=== PATIENT | female | born 1930 | race Caucasian/White ===

== ENCOUNTER 2018-06-20 17:35 | Observation (INO) ==
[2018-06-20] MEDS ORDERED: Sod Chloride 0.9% Inj 1,000 ML IV.CONT SCH (18:45)
--- NOTE | 2018-06-20 19:05 | ED ---
HPI General Chief Complaint: Neuro Symptoms/Deficit Stated Complaint: Poss AMS Time Seen by Provider: 06/20/18 18:32 Source: patient Mode of arrival: EMS Limitations: no limitations History of Present Illness HPI Narrative: 87 years old female complains of heaviness of bilateral forearm especially left arm. Patient states that the symptoms started several hours prior to arrival. Patient denies any headache. Patient denies any visual change. Patient denies any chest pain or shortness of breath. Patient denies abdominal pain. Patient any focal weakness or numbness of the extremity except bilateral forearm heaviness. Patient states that since the heaviness started several hours ago is better now. Patient denies history of TIA CVA. Patient has history of hypertension and hyperlipidemia. Patient is a non-smoker. Patient is not on any anticoagulant. Onset (ago): hour(s) Timing confirmed by: family member Location: Reports left arm and right arm History of same: No Severity: mild Quality: Reports weak Relieving factors: none Exacerbating factors: none Context: Reports gradual onset On Anticoagulants: No Associated symptoms: Reports denies other symptoms Treatments Prior to Arrival: Reports none Related Data Home Medications Medication Instructions Recorded Confirmed clopidogrel 75 mg PO HS 06/20/18 06/20/18 Allergies Allergy/AdvReac Type Severity Reaction Status Date / Time ciprofloxacin Allergy Severe PAINFUL Verified 02/16/18 10:40 JOINTS"COULDN'T TALK" lansoprazole Allergy Severe Nausea Verified 02/16/18 10:40 ranitidine Allergy Severe Nausea Verified 02/16/18 10:40 Sulfa (Sulfonamide Allergy Severe GASTRIC Verified 02/16/18 10:40 Antibiotics) UPSET Review of Systems ROS: all other systems reviewed are negative [facility] Medical History Medical History Foot drop, left (Acute) TIA (transient ischemic attack) (Acute) Arthritis (Acute) High cholesterol (Acute) Hypertension (Acute) Surgical History Surgical History History of hip replacement (Acute) Hx of appendectomy (Acute) Hx of cholecystectomy (Acute) Social History Social History Substance History: No History of Abuse Second Hand Smoke Exposure: No Smoking Status: Former smoker Tobacco Type: Cigarettes How Often Do You Have a Drink Containing Alcohol: Monthly or less Recent Travel in [facility] within the Last 8 Weeks: Yes Recent Out of Country Travel within the Last 8 Weeks: No Immunization History Tetanus Immunization: Unsure Exam Narrative Exam Narrative: GENERAL: Well-nourished, well-developed patient. SKIN: Focused skin assessment warm/dry. HEAD: Normocephalic. EYES: No scleral icterus. No injection or drainage. NECK: Supple, trachea midline. No JVD or lymphadenopathy. CARDIOVASCULAR: Regular rate and rhythm without murmurs, gallops, or rubs. RESPIRATORY: Breath sounds equal bilaterally. No accessory muscle use. GASTROINTESTINAL: Abdomen soft, non-tender, nondistended. MUSCULOSKELETAL: No cyanosis, or edema. BACK: Nontender without obvious deformity. No CVA tenderness. Neurologic exam: Patient is awake alert oriented x3. Patient moves all extremity well. No obvious focal neurological deficit. Course Initial Documented Vital Signs Temperature 97.8 F 06/20/18 17:43 Pulse Rate 77 06/20/18 17:43 Respiratory Rate 20 06/20/18 17:43 Blood Pressure 177/80 H 06/20/18 17:43 Pulse Oximetry 98 06/20/18 17:43 Last Documented Vital Signs Temperature 98.7 F 06/21/18 07:59 Pulse Rate 61 06/21/18 07:59 Respiratory Rate 16 06/21/18 07:59 Blood Pressure 155/80 H 06/21/18 07:59 Pulse Oximetry 98 06/21/18 07:59 Sign Out Sign Out Data: Patient Sign Out occurred on 06/20/18 at 19:37. Patient's care was discussed, and care was transferred from Andrea De Oliveira to Devin Patricio. Sign Out Comment: Patient with complaints of heaviness bilateral forearm started this afternoon. Workup in process. Patient was signed out to physician incoming this evening. Last updated by Andrea De Oliveira MD at 06/20/18 19:07 Post-Handoff Eval: Patient is signed out to me at 730 to follow-up MRI/MRA of the brain she had focal leg weakness bilateral arms left greater than right patient has MRI MRA head neck negative for any findings. Patient has a UTI with 69 white blood cells her son who is an anesthesiologist from [place] reports that she is had more difficulty speaking and confusion over the last few weeks. We will admit her apparently there also was a episode of near syncope prior to her feeling the weirdness in her arms today admit to telemetry near syncope and treat UTI with altered mental status as well Medical Decision Making MDM Narrative Medical decision making narrative: 87 years old female with heaviness sensation of both arm forearm especially left arm this afternoon. MRA MRI negative no vascular findings no CVA no ischemia... UTI + ceftriaxone admit tele Medical Screen Exam Complete: Yes Emergency Medical Condition: Yes Differential Diagnosis Differential Diagnosis: Differential diagnosis including muscular spasm, neuralgia, neuropathy, TIA, CVA. Lab Data Result diagrams: 06/21/18 03:10 06/21/18 03:10 Lab Results 06/20/18 06/20/18 06/20/18 Range/Units 18:45 18:45 18:45 WBC 5.3 (4.0-11.0) th/mm3 RBC 4.00 (4.00-5.30) mil/mm3 Hgb 12.6 (11.6-15.3) gm/dL Hct 37.8 (35.0-46.0) % MCV 94.6 (80.0-100.0) fL MCH 31.5 (27.0-34.0) pg MCHC 33.3 (32.0-36.0) % RDW 13.4 (11.6-17.2) % Plt Count 238 (150-450) th/mm3 MPV 8.7 (7.0-11.0) fL Neut % (Auto) 53.6 (16.0-70.0) % Lymph % (Auto) 32.0 (9.0-44.0) % [place] % (Auto) 11.5 H (0.0-8.0) % Eos % (Auto) 1.7 (0.0-4.0) % Baso % (Auto) 1.2 (0.0-2.0) % Neut # (Auto) 2.8 (1.8-7.7) th/mm3 Lymph # (Auto) 1.7 (1.0-4.8) th/mm3 [place] # (Auto) 0.6 (0.0-0.9) th/mm3 Eos # (Auto) 0.1 (0.0-0.4) th/mm3 Baso # (Auto) 0.1 (0.0-0.2) th/mm3 WBC Differential . Differential Comment Auto diff final PT 10.4 (9.8-11.6) sec INR 1.0 Ratio APTT 27.0 (23.4-31.7) sec Sodium 141 (136-145) meq/L Potassium 3.6 (3.5-5.1) meq/L Chloride 106 (98-107) meq/L Carbon Dioxide 26.7 (21.0-32.0) meq/L Anion Gap 8 (5-15) meq/L BUN 18 (7-18) mg/dL Creatinine 0.96 (0.50-1.00) mg/dL Estimated GFR 55 L (>89) mL/min Random Glucose 81 (74-106) mg/dL Calcium 9.0 (8.5-10.1) mg/dL Total Bilirubin 0.6 (0.2-1.0) mg/dL AST 23 (15-37) U/L ALT 25 (10-53) U/L Alkaline Phosphatase 104 (45-117) U/L Troponin I (0.02-0.05) ng/mL Total Protein 7.2 (6.4-8.2) g/dL Albumin 3.6 (3.4-5.0) g/dL Triglycerides (42-150) mg/dL Cholesterol (120-200) mg/dL LDL Cholesterol, Calc (0-99) mg/dL HDL Cholesterol (40.0-60.0) mg/dL Cholesterol/HDL Ratio Ratio Urine Color (Yellw/Straw) Urine Clarity (Clear) Urine pH (5.0-8.5) Ur Specific Archie (1.002-1.035) Urine Protein (Neg-Trace) mg/dL Urine Glucose (UA) (Negative) mg/dL Urine Ketones (Negative) mg/dL Urine Occult Blood (Negative) Urine Nitrate (Negative) Urine Bilirubin (Negative) Urine Urobilinogen (Less than 2) mg/dL Ur Leukocyte Esterase (Negative) Urine RBC (0-3) /hpf Urine WBC (0-5) /hpf Ur Squamous Epith Cells (0-5) /hpf Ur Transition Epith Cell (None) /hpf Ur Renal Epithelial Cell (None) /hpf Urine Bacteria (None) /hpf Micro UA Comment Ur Microscopic Review Urine Culture Comments 06/20/18 06/20/18 06/21/18 Range/Units 18:45 21:54 03:10 WBC 5.1 (4.0-11.0) th/mm3 RBC 4.07 (4.00-5.30) mil/mm3 Hgb 12.9 (11.6-15.3) gm/dL Hct 37.9 (35.0-46.0) % MCV 93.1 (80.0-100.0) fL MCH 31.6 (27.0-34.0) pg MCHC 34.0 (32.0-36.0) % RDW 13.5 (11.6-17.2) % Plt Count 234 (150-450) th/mm3 MPV 7.8 (7.0-11.0) fL Neut % (Auto) 57.1 (16.0-70.0) % Lymph % (Auto) 27.2 (9.0-44.0) % [place] % (Auto) 11.3 H (0.0-8.0) % Eos % (Auto) 2.5 (0.0-4.0) % Baso % (Auto) 1.9 (0.0-2.0) % Neut # (Auto) 2.9 (1.8-7.7) th/mm3 Lymph # (Auto) 1.4 (1.0-4.8) th/mm3 [place] # (Auto) 0.6 (0.0-0.9) th/mm3 Eos # (Auto) 0.1 (0.0-0.4) th/mm3 Baso # (Auto) 0.1 (0.0-0.2) th/mm3 WBC Differential . Differential Comment Auto diff final PT (9.8-11.6) sec INR Ratio APTT (23.4-31.7) sec Sodium (136-145) meq/L Potassium (3.5-5.1) meq/L Chloride (98-107) meq/L Carbon Dioxide (21.0-32.0) meq/L Anion Gap (5-15) meq/L BUN (7-18) mg/dL Creatinine (0.50-1.00) mg/dL Estimated GFR (>89) mL/min Random Glucose (74-106) mg/dL Calcium (8.5-10.1) mg/dL Total Bilirubin (0.2-1.0) mg/dL AST (15-37) U/L ALT (10-53) U/L Alkaline Phosphatase (45-117) U/L Troponin I Less than 0.02 L (0.02-0.05) ng/mL Total Protein (6.4-8.2) g/dL Albumin (3.4-5.0) g/dL Triglycerides (42-150) mg/dL Cholesterol (120-200) mg/dL LDL Cholesterol, Calc (0-99) mg/dL HDL Cholesterol (40.0-60.0) mg/dL Cholesterol/HDL Ratio Ratio Urine Color Straw (Yellw/Straw) Urine Clarity Hazy H (Clear) Urine pH 6.0 (5.0-8.5) Ur Specific Archie 1.009 (1.002-1.035) Urine Protein Negative (Neg-Trace) mg/dL Urine Glucose (UA) Negative (Negative) mg/dL Urine Ketones Negative (Negative) mg/dL Urine Occult Blood Negative (Negative) Urine Nitrate Negative (Negative) Urine Bilirubin Negative (Negative) Urine Urobilinogen Less than 2 (Less than 2) mg/dL Ur Leukocyte Esterase Large H (Negative) Urine RBC 4 H (0-3) /hpf Urine WBC 69 H (0-5) /hpf Ur Squamous Epith Cells 5 (0-5) /hpf Ur Transition Epith Cell 2 (None) /hpf Ur Renal Epithelial Cell 1 (None) /hpf Urine Bacteria Rare H (None) /hpf Micro UA Comment Culture indicated Ur Microscopic Review Not Reportable Urine Culture Comments Culture indicated 06/21/18 Range/Units 03:10 WBC (4.0-11.0) th/mm3 RBC (4.00-5.30) mil/mm3 Hgb (11.6-15.3) gm/dL Hct (35.0-46.0) % MCV (80.0-100.0) fL MCH (27.0-34.0) pg MCHC (32.0-36.0) % RDW (11.6-17.2) % Plt Count (150-450) th/mm3 MPV (7.0-11.0) fL Neut % (Auto) (16.0-70.0) % Lymph % (Auto) (9.0-44.0) % [place] % (Auto) (0.0-8.0) % Eos % (Auto) (0.0-4.0) % Baso % (Auto) (0.0-2.0) % Neut # (Auto) (1.8-7.7) th/mm3 Lymph # (Auto) (1.0-4.8) th/mm3 [place] # (Auto) (0.0-0.9) th/mm3 Eos # (Auto) (0.0-0.4) th/mm3 Baso # (Auto) (0.0-0.2) th/mm3 WBC Differential Differential Comment PT (9.8-11.6) sec INR Ratio APTT (23.4-31.7) sec Sodium 143 (136-145) meq/L Potassium 3.6 (3.5-5.1) meq/L Chloride 108 H (98-107) meq/L Carbon Dioxide 26.3 (21.0-32.0) meq/L Anion Gap 9 (5-15) meq/L BUN 15 (7-18) mg/dL Creatinine 0.88 (0.50-1.00) mg/dL Estimated GFR 61 L (>89) mL/min Random Glucose 84 (74-106) mg/dL Calcium 9.0 (8.5-10.1) mg/dL Total Bilirubin 0.7 (0.2-1.0) mg/dL AST 21 (15-37) U/L ALT 23 (10-53) U/L Alkaline Phosphatase 100 (45-117) U/L Troponin I Less than 0.02 L (0.02-0.05) ng/mL Total Protein 7.2 (6.4-8.2) g/dL Albumin 3.5 (3.4-5.0) g/dL Triglycerides 108 (42-150) mg/dL Cholesterol 252 H (120-200) mg/dL LDL Cholesterol, Calc 165 H (0-99) mg/dL HDL Cholesterol 65.2 H (40.0-60.0) mg/dL Cholesterol/HDL Ratio 3.86 Ratio Urine Color (Yellw/Straw) Urine Clarity (Clear) Urine pH (5.0-8.5) Ur Specific Archie (1.002-1.035) Urine Protein (Neg-Trace) mg/dL Urine Glucose (UA) (Negative) mg/dL Urine Ketones (Negative) mg/dL Urine Occult Blood (Negative) Urine Nitrate (Negative) Urine Bilirubin (Negative) Urine Urobilinogen (Less than 2) mg/dL Ur Leukocyte Esterase (Negative) Urine RBC (0-3) /hpf Urine WBC (0-5) /hpf Ur Squamous Epith Cells (0-5) /hpf Ur Transition Epith Cell (None) /hpf Ur Renal Epithelial Cell (None) /hpf Urine Bacteria (None) /hpf Micro UA Comment Ur Microscopic Review Urine Culture Comments Imaging Data Radiologist's impression: Chest X-Ray 06/20/18 18:40 CONCLUSION: No evidence of acute cardiopulmonary disease. Head CT 06/20/18 18:40 CONCLUSION: Negative noncontrast head CT. . Head MRI 06/20/18 18:40 CONCLUSION: 1. No bleed, acute infarct or other acute intracranial abnormality. 2. Chronic white matter changes. Head MRA 06/20/18 18:40 CONCLUSION: MRA of the brain is within normal limits. Neck MRA 06/20/18 18:40 CONCLUSION: No thrombosis, significant stenosis or other acute carotid or vertebrobasilar abnormalities at the level of the neck. Percent stenosis is calculated using the diameter of the stenotic region over the diameter of the normal distal internal carotid artery Cervical Spine MRI 06/20/18 19:05 CONCLUSION: 1. Multilevel cervical spine degenerative changes as detailed above. 2. Mild to moderate spinal stenosis at C4/C5. There is mild spinal stenosis at C5/C6 and C6/C7. No cord compression or cord signal abnormality. 3. Moderate to severe bilateral foraminal stenosis at C4/C5. There is moderate right foraminal stenosis at C5/C6. Low-grade or no foraminal encroachment at other levels. 4. No fracture or acute appearing malalignment of the cervical spine. Discharge Plan Discharge Disposition Patient Disposition: 30 Still Patient Physicians Team ED Provider: Devin Patricio Primary Care Provider: Raf Garza Attending Provider: Hamida Guerra Other Providers: [facility],Insurance Discharge Interventions Interventions: ED Discharge Assessment Last Done: 06/20/18 23:23 Status ED Status: Left Department Discharge Information Discharge Date/Time: 06/20/18 23:23
--- NOTE | 2018-06-20 19:07 | CT ---
EXAM DATE: 06/20/2018 7:04 PM EST AGE/SEX: 87 years / Female INDICATIONS: Altered mental status. CLINICAL DATA: This is the patient's initial encounter. Patient reports that signs and symptoms have been present for 1 day and indicates a pain score of 0/10. MEDICAL/SURGICAL HISTORY: Cerebrovascular disease. Hypertension. Appendectomy. Cholecystectomy. RADIATION DOSE: 39,76 CTDI (mGy) COMPARISON: [facility], CT HEAD W/O CONTRAST, 02/16/2018. . TECHNIQUE: CT of the head without contrast. Using automated exposure control and adjustment of the mA and/or kV according to patient size, radiation dose was kept as low as reasonably achievable to ob tain optimal diagnostic quality images. DICOM format image data is available electronically for revi ew and comparison. FINDINGS: Cerebrum: The ventricles are normal for age. No evidence of midline shift, mass lesion, hemorrhage or acute infarction. No extraaxial fluid collections are seen. Posterior Fossa: The cerebellum and brainstem are intact. The 4th ventricle is midline. The cerebe llopontine angle is unremarkable. Extracranial: The visualized portion of the orbits is intact. Skull: The calvaria is intact. No evidence of skull fracture. CONCLUSION: Negative noncontrast head CT. . Electronically signed by: Morales Valdez MD 06/20/2018 7:06 PM EST
--- NOTE | 2018-06-20 19:29 | XR ---
EXAM DATE: 06/20/2018 7:18 PM EST AGE/SEX: 87 years / Female INDICATIONS: Shortness of breath. CLINICAL DATA: This is the patient's initial encounter. Patient reports that signs and symptoms have been present for 1 day and indicates a pain score of 4/10. MEDICAL/SURGICAL HISTORY: . Cerebrovascular disease. Hypertension. . Appendectomy. Cholecyst ectomy COMPARISON: [facility], XR RIBS W/ PA CHEST, BILATERAL, 12/16/2017. . FINDINGS: Mild basilar interstitial opacities and scarring again noted without significant change. No acute pne umonia demonstrated. No pleural effusion or pneumothorax. Heart size stable, within normal limits. Thoracic aorta is tortuous. CONCLUSION: No evidence of acute cardiopulmonary disease. Electronically signed by: Morales Valdez MD 06/20/2018 7:28 PM EST
[2018-06-20 19:33] LABS: Bacteria,Urine Rare /hpf; Baso # (Auto) 0.1 th/mm3 (0.0-0.2); Baso % (Auto) 1.2 % (0.0-2.0); Bilirubin,Urine Negative (Negative); Clarity,Urine Hazy (Clear); Color,Urine Straw (Yellw/Straw); Eos # (Auto) 0.1 th/mm3 (0.0-0.4); Eos % (Auto) 1.7 % (0.0-4.0); Glucose,Urine (UA) Negative (Negative); Hematocrit 37.8 % (35.0-46.0); Hemoglobin 12.6 gm/dL (11.6-15.3); Leukocyte Esterase,Urine Large (Negative); Lymph # (Auto) 1.7 th/mm3 (1.0-4.8); Mean Corpuscular HGB Conc 33.3 % (32.0-36.0); Mean Corpuscular Hemoglobin 31.5 pg (27.0-34.0); Mean Corpuscular Volume 94.6 fL (80.0-100.0); Mean Platelet Volume 8.7 fL (7.0-11.0); Mono # (Auto) 0.6 th/mm3 (0.0-0.9); Mono % (Auto) 11.5 % (0.0-8.0); Neut # (Auto) 2.8 th/mm3 (1.8-7.7); Neut % (Auto) 53.6 % (16.0-70.0); Nitrite,Urine Negative (Negative); Platelet Count 238 th/mm3 (150-450); Red Cell Distribution Width 13.4 % (11.6-17.2); Renal Epithelial Cells,Urine 1 /hpf; Specific Gravity,Urine 1.009 (1.002-1.035); Squamous Epithelial Cell,Urine 5 /hpf (0-5); Transitional Epi Cells,Urine 2 /hpf; White Blood Count 5.3 th/mm3 (4.0-11.0)
[2018-06-20 19:48] LABS: Alanine Aminotransferase 25 U/L (10-53); Albumin 3.6 g/dL (3.4-5.0); Anion Gap 8 meq/L (5-15); Aspartate Aminotransferase 23 U/L (15-37); Blood Urea Nitrogen 18 mg/dL (7-18); Carbon Dioxide 26.7 meq/L (21.0-32.0); Chloride 106 meq/L (98-107); Glomerular Filtration Rate 55 mL/min (>89); Glucose,Random 81 mg/dL (74-106); Potassium 3.6 meq/L (3.5-5.1); Sodium 141 meq/L (136-145)
[2018-06-20 19:49] LABS: Prothrombin Time 10.4 sec (9.8-11.6)
[2018-06-20 19:51] LABS: Alkaline Phosphatase 104 U/L (45-117); Total Protein 7.2 g/dL (6.4-8.2)
--- NOTE | 2018-06-20 20:05 | MR ---
EXAM DATE: 06/20/2018 7:55 PM EST AGE/SEX: 87 years / Female INDICATIONS: . Intermittent memory loss. CLINICAL DATA: This is the patient's initial encounter. Patient reports that signs and symptoms have been present for > 1 year and indicates a pain score of 0/10. MEDICAL/SURGICAL HISTORY: Hypertension. Cholecystectomy. Appendectomy. Total knee replacement , right. Left hip replacement. COMPARISON: [facility] [place], MRA HEAD W/O CONTRAST, 06/20/2018. . TECHNIQUE: Multiplanar, multisequence examination of the brain was performed without contrast. FINDINGS: Cerebrum: The ventricles are normal for age. No evidence of midline shift, mass lesion, hemorrhage or acute infarction. No extraaxial fluid collections are seen. The pituitary gland and suprasellar cistern are normal in configuration. White Matter: Mild to moderate, chronic FLAIR signal abnormality seen in the periventricular white m atter of both vertebral hemispheres. Posterior Fossa: The cerebellum and brainstem are intact. The 4th ventricle is midline. The cerebel lopontine angle is unremarkable. The cerebellar tonsils are normal in position. Diffusion Imaging: No focal areas of restricted diffusion are seen. No evidence of acute infarction . Extracranial: The visualized portions of the orbits and paranasal sinuses are unremarkable. CONCLUSION: 1. No bleed, acute infarct or other acute intracranial abnormality. 2. Chronic white matter changes. Electronically signed by: Morales Valdez MD 06/20/2018 8:04 PM EST
--- NOTE | 2018-06-20 20:06 | MR ---
EXAM DATE: 06/20/2018 7:56 PM EST AGE/SEX: 87 years / Female INDICATIONS: . Intermittent memory loss. CLINICAL DATA: This is the patient's initial encounter. Patient reports that signs and symptoms have been present for > 1 year and indicates a pain score of 0/10. MEDICAL/SURGICAL HISTORY: Hypertension. Total knee replacement, right. Cholecystectomy. Appen dectomy. Left hip replacment. COMPARISON: [facility] [place], [place] W/O CONTRAST, 06/20/2018. . TECHNIQUE: 3D [id number] MRA was performed. Source images, multiplanar STS MIP, and 3D volum e MIP reconstructions were reviewed. FINDINGS: There is excellent visualization of the major intracranial arteries out to the second-order branch ve ssels. There is no evidence for aneurysm, vessel truncation or stenosis, and no evidence for vascula r malformation. CONCLUSION: MRA of the brain is within normal limits. Electronically signed by: Morales Valdez MD 06/20/2018 8:05 PM EST
--- NOTE | 2018-06-20 20:22 | MR ---
EXAM DATE: 06/20/2018 8:08 PM EST AGE/SEX: 87 years / Female INDICATIONS: . Intermittent memory loss. CLINICAL DATA: This is the patient's initial encounter. Patient reports that signs and symptoms have been present for > 1 year and indicates a pain score of 0/10. MEDICAL/SURGICAL HISTORY: Hypertension. Cholecystectomy. Appendectomy. Total knee replacement , right. Left hip replacment. COMPARISON: No prior exams available for comparison. TECHNIQUE: Multiplanar, multisequence MRI examination of the cervical spine was performed without co ntrast. FINDINGS: There are approximately 2 mm of degenerative anterolisthesis at C3/C4, degenerative retrolisthesis at C4/C5 and C5/C6 and degenerative anterolisthesis at C7/T1. No fractures or acute appearing malalignm ent demonstrated. Cervical vertebral have normal height and marrow signal. Visualized portions of the posterior fossa are grossly unremarkable C2-C3: The disc is desiccated but otherwise within normal limits. Mild bilateral uncovertebral and facet osteoarthritis. No foraminal or spinal stenosis. C3-C4: The disc is desiccated and has mild loss of height. Grade 1 degenerative-appearing anterolist hesis. There is mild bulging of the disc annulus and mild bilateral uncovertebral and facet osteoarth ritis. There is no significant foraminal or spinal stenosis. C4-C5: The disc is desiccated and has moderate to severe loss of height. Moderate, broad posterior d isc osteophyte complex and moderate to severe bilateral uncovertebral and facet osteoarthritis presen t. There is slight degenerative appearing retrolisthesis. Mild to moderate spinal stenosis without co rd compression or cord signal abnormality. There is moderate to severe bilateral foraminal stenosis. C5-C6: The disc is desiccated and has moderate to severe loss of height. There is a small, broad pos terior disc osteophyte complex and moderate bilateral uncovertebral and facet osteoarthritis. Grade 1 degenerative retrolisthesis. There is mild spinal stenosis without cord compression or cord signal a bnormality. There is moderate right and mild left foraminal stenosis. C6-C7: The disc is desiccated and has moderate to severe loss of height. There is a small, broad pos terior disc osteophyte complex and moderate bilateral uncovertebral and facet osteoarthritis. There i s mild spinal stenosis without compression or cord signal abnormality. There is mild to moderate bila teral foraminal stenosis. C7-T1: Disc is desiccated and has slight loss of height. Moderate bilateral facet osteoarthritis. Gr bettye 1 degenerative anterolisthesis. There is mild to moderate right and mild left foraminal stenosis. No significant spinal stenosis. CONCLUSION: 1. Multilevel cervical spine degenerative changes as detailed above. 2. Mild to moderate spinal stenosis at C4/C5. There is mild spinal stenosis at C5/C6 and C6/C7. No c ord compression or cord signal abnormality. 3. Moderate to severe bilateral foraminal stenosis at C4/C5. There is moderate right foraminal steno sis at C5/C6. Low-grade or no foraminal encroachment at other levels. 4. No fracture or acute appearing malalignment of the cervical spine. Electronically signed by: Morales Valdez MD 06/20/2018 8:21 PM EST
[2018-06-20] MEDS ORDERED: Gadobutrol PF 10 MMOL/10 ML Vial (for RAD) IV.SIG ONE (20:35)
--- NOTE | 2018-06-20 20:35 | MR ---
EXAM DATE: 06/20/2018 8:25 PM EST AGE/SEX: 87 years / Female INDICATIONS: . Intermittent memory loss. CLINICAL DATA: This is the patient's initial encounter. Patient reports that signs and symptoms have been present for > 1 year and indicates a pain score of 0/10. MEDICAL/SURGICAL HISTORY: Hypertension. Total knee replacement, right. Tonsillectomy. Appende ctomy. Left hip replacement. COMPARISON: No prior exams available for comparison. TECHNIQUE: 10 ml Gadavist (gadobutrol) contrast infused MRA (single exam dose) of the extracranial circulation was performed using a neurovascular coil. Postprocessing was performed, including rotati ng sub-volume maximum intensity projections of each carotid artery, rotating full-volume maximum inte nsity projections of both carotid arteries, sagittal and coronal sliding thin-slab reformations of ea ch carotid artery, and left oblique sliding thin-slab reformation through the aortic arch to include the origin of the arch branch vessels. FINDINGS: All visualized vessels are tortuous. Aortic Arch : There is a three-vessel origin of the great vessels from the aorta. No evidence of o stial narrowing. Right Carotid : The common carotid artery is intact. The carotid bulb has a normal configuration wi thout ulceration or narrowing. The internal carotid artery lumen is smooth without stenosis. The ex ternal carotid artery is intact. Left Carotid : The common carotid artery is intact. The carotid bulb has a normal configuration wit hout ulceration or narrowing. The internal carotid artery lumen is smooth without stenosis. The ext ernal carotid artery is intact. Vertebrals : The vertebral arteries have a symmetric diameter. No stenotic lesions are seen. CONCLUSION: No thrombosis, significant stenosis or other acute carotid or vertebrobasilar abnormalit ies at the level of the neck. Percent stenosis is calculated using the diameter of the stenotic region over the diameter of the nor mal distal internal carotid artery Electronically signed by: Morales Valdez MD 06/20/2018 8:33 EST
--- NOTE | 2018-06-20 21:12 | ECG ---
Date Performed: 06/20/2018 Time Performed: 17:49:14 PTAGE: 87 years EKG: Sinus rhythm NORMAL ECG No significant change from prior electrocardiogram. DOCTOR: Rolando Boykin Interpretating Date/Time 06/20/2018 21:11:48
[2018-06-20] MEDS ORDERED: Bisacodyl 10 MG Supp RECTAL PRN (21:56)
[2018-06-20] MEDS ORDERED: Acetaminophen 325 MG Tablet PO PRN (21:56)
--- NOTE | 2018-06-20 21:59 | P.HPIM ---
History of Present Illness Primary Care Physician: Raf Garza History of Present Illness: This is an 87-year-old female with a PMH of HTN, Hyperlipidemia and h/o TIA who was brought to the ER for episode of AMS and near syncope. Per patient she was in her kitchen when she felt "a sudden robertson come over me", states she had left arm heaviness which lasted few minutes then resolved spontaneously. Notes brief episode of dizziness and near syncope, at which time she had to sit down. Also notes some short term memory loss which she attributes to development of dementia. Per report, Son is Anesthesiologist from [place] and had mentioned pt w/ episodes of confusion and difficulty speaking for the last few weeks. Denies chest pain, fever, chills, SOB or motor weakness. No facial droop or slurred speech. On arrival, BP 177/80, HR 77, O2 sat 98% on RA, Afebrile. We will. INR 1.0. Chemistry unremarkable. Troponin negative. UA positive for UTI. CXR with no acute findings. CT Head negative. MRA Head negative. MRI Head negative. MRA Neck negative. MRI C-spine moderate to severe bilateral foraminal stenosis C4-C5, moderate right foraminal stenosis C5-C6. Pt denies any complaints at this time. - Diagnosis (1) Encephalopathy (2) Near syncope (3) UTI (urinary tract infection) Review of Systems PAST FAMILY HISTORY: Reviewed. No h/o DM or CAD All other systems reviewed negative except as stated in HPI [facility] - History History Provided By: Patient, Family Member - Medical History Medical History: Medical History (Last Reviewed 06/20/18 @ 19:04 by Andrea De Oliveira MD) Foot drop, left TIA (transient ischemic attack) Arthritis High cholesterol Hypertension - Surgical History Surgical History: Surgical History (Last Reviewed 06/20/18 @ 19:04 by Andrea De Oliveira MD) History of hip replacement Hx of appendectomy Hx of cholecystectomy - Tobacco History Smoking Status: Former smoker - Alcohol History How Often Do You Have a Drink Containing Alcohol: Monthly or less - Substance Use History Substance History: No History of Abuse - Travel History Recent Travel in the [place] Within the Last 8 Weeks: Yes Recent Travel Out of the Country Within the Last 8 Weeks: No - Immunization History Tetanus Immunization: Unsure Medications and Allergies Active Medications: Active Medications Acetaminophen (Tylenol) 650 mg PO Q4H PRN PRN Reason: Temp > 100.4 Al Hydroxide/Mg Hydroxide (Milk Of Magnesia Liq) 30 ml PO Q12H PRN PRN Reason: Mild Constipation Bisacodyl (Dulcolax Supp) 10 mg RECTAL DAILY PRN PRN Reason: SEVERE CONSITIPATION Clopidogrel Bisulfate (Plavix) 75 mg PO HS MARIIA Sodium Chloride (Ns Inj) 1,000 mls @ 70 mls/hr IV.CONT .[id number] MARIIA Stop: 06/21/18 09:02 Last Admin: 06/20/18 20:37 Dose: 70 mls/hr Ceftriaxone Sodium 1,000 mg/ (Sodium Chloride) 100 mls @ 200 mls/hr IV.SIG ONCE ONE Stop: 06/20/18 22:10 Last Admin: 06/20/18 21:49 Dose: 200 mls/hr Ceftriaxone Sodium 1,000 mg/ (Sodium Chloride) 100 mls @ 200 mls/hr IV.SIG Q24H MARIIA Sodium Chloride (Ns Inj) 1,000 mls @ 100 mls/hr IV.CONT .Q10H MARIIA Lactulose (Lactulose Liq) 30 ml PO DAILY PRN PRN Reason: SEVERE CONSITIPATION Ondansetron HCl (Zofran Inj) 4 mg IV.PUSH Q6H PRN PRN Reason: NAUSEA OR VOMITING Senna/Docusate Sodium (Rosie-Colace) 1 tab PO BID MARIIA Sennosides (Senokot) 17.2 mg PO Q12H PRN PRN Reason: Moderate Constipation Allergies Allergy/AdvReac Type Severity Reaction Status Date / Time ciprofloxacin Allergy Severe PAINFUL Verified 02/16/18 10:40 JOINTS"COULDN'T TALK" lansoprazole Allergy Severe Nausea Verified 02/16/18 10:40 ranitidine Allergy Severe Nausea Verified 02/16/18 10:40 Sulfa (Sulfonamide Allergy Severe GASTRIC Verified 02/16/18 10:40 Antibiotics) UPSET Home Medications Medication Instructions Recorded Confirmed Type clopidogrel 75 mg PO HS 06/20/18 06/20/18 History Exam Vital signs: Vital Signs 06/20/18 17:43 06/20/18 19:28 06/20/18 20:26 Temperature 97.8 F Pulse Rate 77 79 Respiratory Rate 20 18 Blood Pressure 177/80 H 177/89 H Pulse Oximetry 98 98 97 Intake & Output 06/20/18 06/20/18 06/21/18 06:59 18:59 06:59 Weight 65.771 kg Narrative: PE: GENERAL: Extremely pleasant elderly white female in no acute distress. Normal mental status, answering questions appropriately SKIN: Focused skin assessment warm and dry. HEENT: PERRLA, EOMI. No scleral icterus or conjunctival pallor. No lid lag or facial droop. CARDIOVASCULAR: Regular rate and rhythm. No obvious murmurs to auscultation. No chest tenderness to palpation. RESPIRATORY: No obvious rhonchi or wheezing. Clear to auscultation. Breath sounds equal bilaterally. GASTROINTESTINAL: Abdomen soft, non-tender, nondistended. BS normal. MUSCULOSKELETAL: Extremities without clubbing, cyanosis, or edema. No obvious deformities. NEUROLOGICAL: Awake, alert and oriented x4. No focal neurologic deficits. Moving both upper and lower extremities spontaneously. PSYCHIATRIC: Appropriate mood and affect. Insight and judgment normal. Results - Labs CBC & Chem 7: 06/20/18 18:45 06/20/18 18:45 Labs: Short CBC 06/20/18 Range/Units 18:45 WBC 5.3 (4.0-11.0) th/mm3 Hgb 12.6 (11.6-15.3) gm/dL Hct 37.8 (35.0-46.0) % Plt Count 238 (150-450) th/mm3 BMP 06/20/18 18:45 Sodium 141 Potassium 3.6 Chloride 106 Carbon Dioxide 26.7 BUN 18 Creatinine 0.96 Calcium 9.0 Liver Function 06/20/18 Range/Units 18:45 Total Bilirubin 0.6 (0.2-1.0) mg/dL AST 23 (15-37) U/L ALT 25 (10-53) U/L Alkaline Phosphatase 104 (45-117) U/L Albumin 3.6 (3.4-5.0) g/dL Urine 06/20/18 Range/Units 18:45 Urine Color Straw (Yellw/Straw) Urine Clarity Hazy H (Clear) Urine pH 6.0 (5.0-8.5) Ur Specific [place] 1.009 (1.002-1.035) Urine Protein Negative (Neg-Trace) mg/dL Urine Glucose (UA) Negative (Negative) mg/dL - Imaging Impressions Chest X-Ray 06/20/18 18:40 CONCLUSION: No evidence of acute cardiopulmonary disease. Head CT 06/20/18 18:40 CONCLUSION: Negative noncontrast head CT. . Head MRI 06/20/18 18:40 CONCLUSION: 1. No bleed, acute infarct or other acute intracranial abnormality. 2. Chronic white matter changes. Head MRA 06/20/18 18:40 CONCLUSION: MRA of the brain is within normal limits. Neck MRA 06/20/18 18:40 CONCLUSION: No thrombosis, significant stenosis or other acute carotid or vertebrobasilar abnormalities at the level of the neck. Percent stenosis is calculated using the diameter of the stenotic region over the diameter of the normal distal internal carotid artery Cervical Spine MRI 06/20/18 19:05 CONCLUSION: 1. Multilevel cervical spine degenerative changes as detailed above. 2. Mild to moderate spinal stenosis at C4/C5. There is mild spinal stenosis at C5/C6 and C6/C7. No cord compression or cord signal abnormality. 3. Moderate to severe bilateral foraminal stenosis at C4/C5. There is moderate right foraminal stenosis at C5/C6. Low-grade or no foraminal encroachment at other levels. 4. No fracture or acute appearing malalignment of the cervical spine. Caprini VTE Risk Assessment Caprini VTE Risk Assessment: No/Low Risk (score <= 1) Caprini Risk Assessment Model: Point Value = 1 Point Value = 2 Point Value = 3 Point Value = 5 Age 41-60 Minor surgery BMI > 25 kg/m2 Swollen legs Varicose veins or History of unexplained or recurrent spontaneous Oral contraceptives or hormone replacement Sepsis (< 1 month) Serious lung disease, including pneumonia (< 1 month) Abnormal pulmonary function Acute myocardial infarction Congestive heart failure (< 1 month) History of inflammatory bowel disease Medical patient at bed rest Age 61-74 Arthroscopic surgery Major open surgery (> 45 min) Laparoscopic surgery (> 45 min) Malignancy Confined to bed (> 72 hours) Immobilizing plaster cast Central venous access Age >= 75 History of VTE Family history of VTE Factor V Leiden Prothrombin [id number] Lupus anticoagulant Anticardiolipin antibodies Elevated serum homocysteine Heparin-induced thrombocytopenia Other congenital or acquired thrombophilia Stroke (< 1 month) Elective arthroplasty Hip, pelvis, or leg fracture Acute spinal cord injury (< 1 month) Prophylaxis Regimen: Total Risk Factor Score Risk Level Prophylaxis Regimen 0-1 Low Early ambulation 2 Moderate Order ONE of the following: *Sequential Compression Device (SCD) *Heparin 5000 units SQ BID 3-4 Higher Order ONE of the following medications: *Heparin 5000 units SQ TID *Enoxaparin/Lovenox 40 mg SQ daily (WT < 150 kg, CrCl > 30 mL/min) *Enoxaparin/Lovenox 30 mg SQ daily (WT < 150 kg, CrCl > 10-29 mL/min) *Enoxaparin/Lovenox 30 mg SQ BID (WT < 150 kg, CrCl > 30 mL/min) AND/OR *Sequential Compression Device (SCD) 5 or more Highest Order ONE of the following medications: *Heparin 5000 units SQ TID (Preferred with Epidurals) *Enoxaparin/Lovenox 40 mg SQ daily (WT < 150 kg, CrCl > 30 mL/min) *Enoxaparin/Lovenox 30 mg SQ daily (WT < 150 kg, CrCl > 10-29 mL/min) *Enoxaparin/Lovenox 30 mg SQ BID (WT < 150 kg, CrCl > 30 mL/min) AND *Sequential Compression Device (SCD) Assessment and Plan - Assessment (1) Encephalopathy Code(s): G93.40 - Encephalopathy, unspecified Status: Acute (2) Near syncope Code(s): R55 - Syncope and collapse Status: Acute (3) UTI (urinary tract infection) Code(s): N39.0 - Urinary tract infection, site not specified Status: Acute - Plan A/P: 1. Encephalopathy: per report, Son noted pt to have episodes of confusion and difficulty speaking over the last several weeks, likely combination of new/ progressive dementia w/ acute UTI. CT Head w/ no acute findings. MRI/MRA Head and MRA Neck negative. C-Spine MRI w/ foraminal stenosis, however pt asymptomatic, images reviewed. Admit for Observation, Neuro Checks. PT for eval/tx. 2. Near Syncope: episode of dizziness w/ near syncopal event, labs essentially unremarkable. Trop negative, will check serial cardiac enzymes to r /o underlying ischemia. Check Echo to eval for valvular abnormality/ cardiomyopathy. 3. UTI: U/a w/ significant UTI, s/p Rocephin in ER, will continue w/ IV Abx, monitor I/O, follow up cultures. 4. DVT Prophylaxis: SCD/Teds 5. Social work for d/c planning as needed. 6. Case discussed w/ ER physician at length, labs/records/imaging reviewed by me.
[2018-06-20] MEDS: Sod Chloride 0.9% Inj 1,000 ML IV.CONT SCH (22:08)
[2018-06-21 03:43] LABS: Baso # (Auto) 0.1 th/mm3 (0.0-0.2); Baso % (Auto) 1.9 % (0.0-2.0); Eos # (Auto) 0.1 th/mm3 (0.0-0.4); Eos % (Auto) 2.5 % (0.0-4.0); Hematocrit 37.9 % (35.0-46.0); Hemoglobin 12.9 gm/dL (11.6-15.3); Lymph # (Auto) 1.4 th/mm3 (1.0-4.8); Lymph % (Auto) 27.2 % (9.0-44.0); Mean Corpuscular Hemoglobin 31.6 pg (27.0-34.0); Mean Corpuscular Volume 93.1 fL (80.0-100.0); Mean Platelet Volume 7.8 fL (7.0-11.0); Mono # (Auto) 0.6 th/mm3 (0.0-0.9); Mono % (Auto) 11.3 % (0.0-8.0); Neut # (Auto) 2.9 th/mm3 (1.8-7.7); Neut % (Auto) 57.1 % (16.0-70.0); Platelet Count 234 th/mm3 (150-450); Red Blood Count 4.07 mil/mm3 (4.00-5.30); Red Cell Distribution Width 13.5 % (11.6-17.2); White Blood Count 5.1 th/mm3 (4.0-11.0)
[2018-06-21 04:02] LABS: Alanine Aminotransferase 23 U/L (10-53); Albumin 3.5 g/dL (3.4-5.0); Anion Gap 9 meq/L (5-15); Aspartate Aminotransferase 21 U/L (15-37); Blood Urea Nitrogen 15 mg/dL (7-18); Carbon Dioxide 26.3 meq/L (21.0-32.0); Chloride 108 meq/L (98-107); Cholesterol 252 mg/dL (120-200); Glomerular Filtration Rate 61 mL/min (>89); Glucose,Random 84 mg/dL (74-106); Potassium 3.6 meq/L (3.5-5.1); Sodium 143 meq/L (136-145); Triglycerides 108 mg/dL (42-150)
[2018-06-21 04:06] LABS: Alkaline Phosphatase 100 U/L (45-117); Chol/HDL Ratio 3.86 Ratio; HDL Cholesterol 65.2 mg/dL (40.0-60.0); LDL Cholesterol,Calculated 165 mg/dL (0-99); Total Protein 7.2 g/dL (6.4-8.2)
[2018-06-21] MEDS ORDERED: Senna/Docusate Sodium 8.6/50 MG Tablet PO SCH (09:00)
[2018-06-21] MEDS: Sod Chloride 0.9% Inj 1,000 ML IV.CONT SCH (09:25)
--- NOTE | 2018-06-21 10:17 | ECG ---
Date Performed: 06/21/2018 Time Performed: 03:23:58 PTAGE: 87 years EKG: Sinus rhythm LOW QRS VOLTAGE IN EXTREMITY LEADS BORDERLINE ECG Compared to prior electrocardiogram, No significan t change from prior electrocardiogram. . PREVIOUS TRACING : 06/20/2018 17.49 DOCTOR: Rolando Boykin Interpretating Date/Time 06/21/2018 10:15:30
--- NOTE | 2018-06-21 11:29 | ECHRPT ---
Indication: syncope CONCLUSIONS Normal left ventricular size. Wall thickness is normal. The left ventricular systolic function is normal with an estimated ejection fraction in the range of 55-60%. Severe mitral annular calcification. [id number] mitral valve regurgitation. Moderate thickening of the aortic valve leaflets. There is mild to moderate tricuspid valve regurgitation. The estimated pulmonary arterial pressure is 30 mmHg. BP: / HR: Rhythm: MEASUREMENTS (Male / Female) Normal Values Technical Quality: 2D ECHO LV Diastolic Diameter PLAX 3.1 cm 4.2 - 5.9 / 3.9 - 5.3 cm LV Systolic Diameter PLAX 2.0 cm IVS Diastolic Thickness 1.0 cm 0.6 - 1.0 / 0.6 - 0.9 cm LVPW Diastolic Thickness 1.0 cm 0.6 - 1.0 / 0.6 - 0.9 cm LV Relative Wall Thickness 0.7 RV Internal Dim ED PLAX 2.5 cm LVOT Diameter 1.9 cm Aortic Root Diameter 2.7 cm LA Systolic Diameter LX 2.6 cm 3.0 - 4.0 / 2.7 - 3.8 cm LV Ejection Fraction MOD BP 61.8 % >= 55 % LV Ejection Fraction MOD 4C 46.2 % LV Ejection Fraction 4C AL 49.7 % LV Ejection Fraction MOD 2C 70.5 % LV Ejection Fraction 2C AL 71.3 % M-MODE Aortic Root Diameter MM 3.5 cm LA Systolic Diameter MM 3.4 cm LA Ao Ratio MM 1.0 DOPPLER AV Peak Velocity 185.0 cm/s AV Peak Gradient 13.7 mmHg LVOT Peak Velocity 98.7 cm/s LVOT Peak Gradient 3.9 mmHg AV Area Cont Eq pk 1.5 cm MV Peak Velocity 120.5 cm/s MV Peak Gradient 5.8 mmHg MV Mean Velocity 67.0 cm/s MV Mean Gradient 2.0 mmHg MV Area PHT 2.8 cm Mitral E Point Velocity 72.9 cm/s Mitral A Point Velocity 133.0 cm/s Mitral E to A Ratio 0.5 LV E' Lateral Velocity 5.5 cm/s Mitral E to LV E' Lateral Ratio 13.4 LV E' Septal Velocity 6.3 cm/s Mitral E to LV E' Septal Ratio 11.5 TR Peak Velocity 224.0 cm/s TR Peak Gradient 20.0 mmHg Right Atrial Pressure 10.0 mmHg Pulmonary Artery Systolic Pressu 30.1 mmHg Right Ventricular Systolic Press 30.1 mmHg PV Peak Velocity 82.4 cm/s PV Peak Gradient 2.7 mmHg FINDINGS LEFT VENTRICLE Normal left ventricular size. Wall thickness is normal. The left ventricular systolic function is normal with an estimated ejection fraction in the range of 55-60%. RIGHT VENTRICLE Normal right ventricular size and systolic function. LEFT ATRIUM The left atrial size is normal. RIGHT ATRIUM The right atrial size is normal. ATRIAL SEPTUM Normal atrial septal thickness without atrial level shunting by limited color doppler interrogation. AORTA The aortic root and proximal ascending aorta are normal in size on limited imaging. MITRAL VALVE Severe mitral annular calcification. [id number] mitral valve regurgitation. AORTIC VALVE Moderate thickening of the aortic valve leaflets. TRICUSPID VALVE There is mild to moderate tricuspid valve regurgitation. The estimated pulmonary arterial pressure is 30 mmHg. PULMONARY VALVE No pulmonary valve regurgitation or stenosis. VESSELS The inferior vena cava is normal in size. PERICARDIUM No pericardial effusion. Wild Gage MD, FACC (Electronically Signed) Final Date:21 June 2018 11:28
[2018-06-21 12:16] VITALS: BP 148/75; PULSE 67; RESP 14; TEMP 97.8; O2SAT 97
--- NOTE | 2018-06-21 13:17 | P.PNIM ---
Subjective Interval history: Patient reports she is feeling great today. She is eager to go home. She ambulated with physical therapy. She is aware of her current situation and stated herself that she has been having memory issues. Physical Exam Vital signs: Vital Signs 06/20/18 17:43 06/20/18 19:28 06/20/18 20:26 Temperature 97.8 F Pulse Rate 77 79 Respiratory Rate 20 18 Blood Pressure 177/80 H 177/89 H Pulse Oximetry 98 98 97 06/21/18 00:00 06/21/18 03:16 06/21/18 07:59 Temperature 98.1 F 98.7 F Pulse Rate 63 79 61 Respiratory Rate 16 16 16 Blood Pressure 147/81 H 162/82 H 155/80 H Pulse Oximetry 98 97 98 06/21/18 08:00 06/21/18 12:00 Temperature 97.8 F Pulse Rate 65 67 Respiratory Rate 14 Blood Pressure 148/75 H Pulse Oximetry 97 Intake & Output 06/20/18 06/21/18 06/21/18 18:59 06:59 18:59 Intake Total 310 / 310 1000 / 1000 Balance 310 / 310 1000 / 1000 Weight 65.771 kg 66.3 kg Intake: IV 310 / 310 1000 / 1000 NS Inj 1,000 ML @ 100 mls/hr IV 210 / 210 1000 / 1000 .CONT .Q10H MARIIA Rx#:[id number] Rocephin Inj 1,000 MG In NS Inj 100 / 100 100 ML @ 200 mls/hr IV.SIG ONCE ONE Rx#:[id number] Other: Date of Last Bowel Movement 06/20/18 Weight On Admission 65.771 kg Narrative: GENERAL: Extremely pleasant elderly white female in no acute distress. Normal mental status, answering questions appropriately CARDIOVASCULAR: Regular rate and rhythm. No obvious murmurs to auscultation. No chest tenderness to palpation. RESPIRATORY: No obvious rhonchi or wheezing. Clear to auscultation. Breath sounds equal bilaterally. GASTROINTESTINAL: Abdomen soft, non-tender, nondistended. BS normal. MUSCULOSKELETAL: Extremities without clubbing, cyanosis, or edema. No obvious deformities. NEUROLOGICAL: Awake, alert and oriented x4. No focal neurologic deficits. Moving both upper and lower extremities spontaneously. PSYCHIATRIC: Appropriate mood and affect. Insight and judgment normal. Results - Labs CBC & Chem 7: 06/21/18 03:10 06/21/18 03:10 Laboratory Results - last 24 hr 06/20/18 06/20/18 06/20/18 18:45 18:45 18:45 WBC 5.3 RBC 4.00 Hgb 12.6 Hct 37.8 MCV 94.6 MCH 31.5 MCHC 33.3 RDW 13.4 Plt Count 238 MPV 8.7 Neut % (Auto) 53.6 Lymph % (Auto) 32.0 [place] % (Auto) 11.5 H Eos % (Auto) 1.7 Baso % (Auto) 1.2 Neut # (Auto) 2.8 Lymph # (Auto) 1.7 [place] # (Auto) 0.6 Eos # (Auto) 0.1 Baso # (Auto) 0.1 WBC Differential . Differential Comment Auto diff final PT 10.4 INR 1.0 APTT 27.0 Sodium 141 Potassium 3.6 Chloride 106 Carbon Dioxide 26.7 Anion Gap 8 BUN 18 Creatinine 0.96 Estimated GFR 55 L Random Glucose 81 Calcium 9.0 Total Bilirubin 0.6 AST 23 ALT 25 Alkaline Phosphatase 104 Troponin I Total Protein 7.2 Albumin 3.6 Triglycerides Cholesterol LDL Cholesterol, Calc HDL Cholesterol Cholesterol/HDL Ratio Urine Color Urine Clarity Urine pH Ur Specific [place] Urine Protein Urine Glucose (UA) Urine Ketones Urine Occult Blood Urine Nitrate Urine Bilirubin Urine Urobilinogen Ur Leukocyte Esterase Urine RBC Urine WBC Ur Squamous Epith Cells Ur Transition Epith Cell Ur Renal Epithelial Cell Urine Bacteria Micro UA Comment Ur Microscopic Review Urine Culture Comments 06/20/18 06/20/18 06/21/18 18:45 21:54 03:10 WBC 5.1 RBC 4.07 Hgb 12.9 Hct 37.9 MCV 93.1 MCH 31.6 MCHC 34.0 RDW 13.5 Plt Count 234 MPV 7.8 Neut % (Auto) 57.1 Lymph % (Auto) 27.2 [place] % (Auto) 11.3 H Eos % (Auto) 2.5 Baso % (Auto) 1.9 Neut # (Auto) 2.9 Lymph # (Auto) 1.4 [place] # (Auto) 0.6 Eos # (Auto) 0.1 Baso # (Auto) 0.1 WBC Differential . Differential Comment Auto diff final PT INR APTT Sodium Potassium Chloride Carbon Dioxide Anion Gap BUN Creatinine Estimated GFR Random Glucose Calcium Total Bilirubin AST ALT Alkaline Phosphatase Troponin I Less than 0.02 L Total Protein Albumin Triglycerides Cholesterol LDL Cholesterol, Calc HDL Cholesterol Cholesterol/HDL Ratio Urine Color Straw Urine Clarity Hazy H Urine pH 6.0 Ur Specific [place] 1.009 Urine Protein Negative Urine Glucose (UA) Negative Urine Ketones Negative Urine Occult Blood Negative Urine Nitrate Negative Urine Bilirubin Negative Urine Urobilinogen Less than 2 Ur Leukocyte Esterase Large H Urine RBC 4 H Urine WBC 69 H Ur Squamous Epith Cells 5 Ur Transition Epith Cell 2 Ur Renal Epithelial Cell 1 Urine Bacteria Rare H Micro UA Comment Culture indicated Ur Microscopic Review Not Reportable Urine Culture Comments Culture indicated 06/21/18 06/21/18 03:10 12:10 WBC RBC Hgb Hct MCV MCH MCHC RDW Plt Count MPV Neut % (Auto) Lymph % (Auto) [place] % (Auto) Eos % (Auto) Baso % (Auto) Neut # (Auto) Lymph # (Auto) [place] # (Auto) Eos # (Auto) Baso # (Auto) WBC Differential Differential Comment PT INR APTT Sodium 143 Potassium 3.6 Chloride 108 H Carbon Dioxide 26.3 Anion Gap 9 BUN 15 Creatinine 0.88 Estimated GFR 61 L Random Glucose 84 Calcium 9.0 Total Bilirubin 0.7 AST 21 ALT 23 Alkaline Phosphatase 100 Troponin I Less than 0.02 L Less than 0.02 L Total Protein 7.2 Albumin 3.5 Triglycerides 108 Cholesterol 252 H LDL Cholesterol, Calc 165 H HDL Cholesterol 65.2 H Cholesterol/HDL Ratio 3.86 Urine Color Urine Clarity Urine pH Ur Specific [place] Urine Protein Urine Glucose (UA) Urine Ketones Urine Occult Blood Urine Nitrate Urine Bilirubin Urine Urobilinogen Ur Leukocyte Esterase Urine RBC Urine WBC Ur Squamous Epith Cells Ur Transition Epith Cell Ur Renal Epithelial Cell Urine Bacteria Micro UA Comment Ur Microscopic Review Urine Culture Comments Microbiology 06/20/18 18:45 Clean Catch Urine Urine Culture - Preliminary No growth in 24 hours - Imaging Impressions Chest X-Ray 06/20/18 18:40 CONCLUSION: No evidence of acute cardiopulmonary disease. Head CT 06/20/18 18:40 CONCLUSION: Negative noncontrast head CT. . Head MRI 06/20/18 18:40 CONCLUSION: 1. No bleed, acute infarct or other acute intracranial abnormality. 2. Chronic white matter changes. Head MRA 06/20/18 18:40 CONCLUSION: MRA of the brain is within normal limits. Neck MRA 06/20/18 18:40 CONCLUSION: No thrombosis, significant stenosis or other acute carotid or vertebrobasilar abnormalities at the level of the neck. Percent stenosis is calculated using the diameter of the stenotic region over the diameter of the normal distal internal carotid artery Cervical Spine MRI 06/20/18 19:05 CONCLUSION: 1. Multilevel cervical spine degenerative changes as detailed above. 2. Mild to moderate spinal stenosis at C4/C5. There is mild spinal stenosis at C5/C6 and C6/C7. No cord compression or cord signal abnormality. 3. Moderate to severe bilateral foraminal stenosis at C4/C5. There is moderate right foraminal stenosis at C5/C6. Low-grade or no foraminal encroachment at other levels. 4. No fracture or acute appearing malalignment of the cervical spine. Assessment and Plan - Assessment (1) Encephalopathy Code(s): G93.40 - Encephalopathy, unspecified Status: Acute (2) Near syncope Code(s): R55 - Syncope and collapse Status: Acute (3) UTI (urinary tract infection) Code(s): N39.0 - Urinary tract infection, site not specified Status: Acute - Plan 87-year-old female admitted to the hospital for confusion and episodes of difficulty speaking over the last several weeks. Patient admitted to rule out stroke. The patient had negative head CT, MRI/MRA Head and MRA Neck negative. C-Spine MRI w/ foraminal stenosis, however pt asymptomatic. Urinalysis was concerning for UTI -The patient was admitted for observation. I had an extensive discussion with the patient's son who is a retired anesthesiologist. Apparently the patient has been having issues with memory and her primary care physician has been talking with them about early dementia. They have plans to move the patient closer to family to an [facility]. The patient's symptoms is likely due to worsening dementia and intermittent dehydration due to lack of oral hydration. Patient's son reports they have to constantly remind her to drink water. -Regarding the abnormal urinalysis. She was given empiric antibiotics in the emergency room. Her urine cultures so far is negative. She is a symptomatic. Therefore will not continue antibiotics at this time. Near Syncope: episode of dizziness w/ near syncopal event, labs essentially unremarkable. Cardiac enzyme and EKG negative. Echocardiogram unremarkable. This is likely secondary to dehydration. Patient ambulated well with PT with no signs of issues. The patient is stable for discharge. She does require supervision as it appears that her dementia is progressing. Discussed with her son at length. He will be here throughout next week and they will consider hiring caregivers at home until the patient can be placed in an [facility]. Discharge Planning: Discharge patient to home Condition on discharge: Improved Regular Diet as tolerated Ad [place] activity Rx written: Per med rec. Follow-up with primary care physician
== END 2018-06-21 16:58 | disposition home or self-care (01) ==
LOC: NEDA 17:35 → NEPE 17:35 → NEDA 23:23 → NEPGCP 23:30
PROVIDERS: ADMIT Family Medicine; ATTEND Family Medicine